=== PATIENT | female | born 1950 | race Caucasian/White ===

== ENCOUNTER 2021-10-28 21:43 | Emergency (ER) | payer MEDICARE ==
[~2021-10-28] VITALS: Ht 154.9 cm; Wt 81.8 kg
[2021-10-28 22:36] VITALS: BP 165/87
[2021-10-28] MEDS ORDERED: PRAVASTATIN10 MG PO (22:39)
== END 2021-10-28 22:51 | disposition home or self-care (01) ==
LOC: ED 21:43
PROC: 2W3CX1Z Immobilization of Right Lower Arm using Splint (ICD-10-PCS; principal; 2021-10-28)
DX: S52.501A Unspecified fracture of the lower end of right radius, initial encounter for closed fracture (principal); W01.0XXA Fall on same level from slipping, tripping and stumbling without subsequent striking against object, initial encounter; Y92.009 Unspecified place in unspecified non-institutional (private) residence as the place of occurrence of the external cause